=== PATIENT | male | born 1945 | race Caucasian/White ===

== ENCOUNTER → 2016-09-21 | Outpatient (REF) ==
[~2016-09-21] MED LIST: MULTIPLE VITAMI1 CAP PO; VITAMIN C BUFF500 MG PO; VITAMIN D1000 IU PO
== END ==
LOC: ZLAB.WCH 15:19
DX: Z01.89 Encounter for other specified special examinations (principal)
CPT/HCPCS: G0103

== ENCOUNTER → 2018-01-06 | Outpatient (REF) ==
[2018-01-06 15:23] LABS: PSA-TOTAL 1.19 ng/mL (0-4)
[2018-01-06 15:42] LABS: THYROID STIMULATING HORMONE 2.41 uIU/mL (0.465-4.680)
== END ==
LOC: ZLAB.WCH 14:31
PROVIDERS: Internal Medicine
DX: Z01.89 Encounter for other specified special examinations (principal)
CPT/HCPCS: G0103

== ENCOUNTER → 2018-01-21 | Outpatient (REF) ==
[2018-01-21 15:00] LABS: IRON,SERUM 52 ug/dL (35-150)
[2018-01-21 15:10] LABS: TOTAL IRON BINDING CAPACITY 445 ug/dL (261-462)
[2018-01-21 15:37] LABS: FERRITIN 11 ng/mL (18-464)
== END ==
LOC: ZLAB.WCH 14:30
PROVIDERS: Internal Medicine
DX: Z01.89 Encounter for other specified special examinations (principal)